=== PATIENT | female | born 1970 | race Two or more races ===

== ENCOUNTER 2018-11-05 13:06 | Inpatient (IN) | payer MEDICAID, OTHER ==
[~2018-11-05] VITALS: Ht 167.6 cm; Wt 69.6 kg
[2018-11-05] MEDS ORDERED: ZOLP5 PO (15:03)
[2018-11-05] MEDS ORDERED: LORA2TAB2 PO (15:03)
[2018-11-05 16:01] LABS: BASOPHILS % (AUTO) 0.5 % (0.0-2.0); HEMOGLOBIN 12.4 g/dL (12.0-16.0); LYMPHOCYTES % (AUTO) 26.5 % (22.0-44.0); MEAN CORPUSCULAR HEMOGLOBIN 31.7 pg (26.0-34.0); MEAN CORPUSCULAR HGB CONC 34.5 G/dL (31.0-37.0); MEAN CORPUSCULAR VOLUME 92 fL (80-100); MONOCYTES # (AUTO) 0.7 K/uL (0.1-1.0); MONOCYTES % (AUTO) 9.2 % (2.0-9.0); NEUTROPHILS # (AUTO) 4.4 K/uL (1.8-7.7); NEUTROPHILS % (AUTO) 59.8 % (40.0-70.0); PLATELET COUNT (AUTO) 244 K/uL (150-450); RED BLOOD CELL COUNT(AUTO) 3.91 MIL/uL (4.00-5.20)
[2018-11-05 16:11] LABS: APPEARANCE,URINE CLEAR (CLEAR); BILIRUBIN,URINE NEGATIVE (NEGATIVE); GLUCOSE, URINE (UA) NEGATIVE (NEGATIVE); KETONES,URINE NEGATIVE (NEGATIVE); LEUKOCYTE ESTERASE ,URINE MODERATE (NEGATIVE); NITRATE,URINE NEGATIVE (NEGATIVE); OCCULT BLOOD,URINE NEGATIVE (NEGATIVE); PROTEIN,URINE NEGATIVE (NEGATIVE); UROBILINOGEN,URINE 0.2 mg/dL (<=1.0)
[2018-11-05 16:12] LABS: AMPHET/METH SCREEN,URINE NEGATIVE (NEGATIVE); BARBITURATE SCREEN, URINE NEGATIVE (NEGATIVE); BENZODIAZEPINES SCREEN,URINE NEGATIVE (NEGATIVE); CANNABINOID SCREEN,URINE NEGATIVE (NEGATIVE); COCAINE SCREEN,URINE NEGATIVE (NEGATIVE); METHADONE SCREEN, URINE NEGATIVE (NEGATIVE); OPIATE SCREEN,URINE NEGATIVE (NEGATIVE)
[2018-11-05 16:12] LABS: ANION GAP 9 mmol/L (8-16); CARBON DIOXIDE 28 mmol/L (22-29); CHLORIDE 104 mmol/L (98-107); CREATININE 0.57 mg/dL (0.60-1.30); GLOMERULAR FILTR. RATE CALC > 60 mL/min (>60); GLUCOSE,RANDOM 88 mg/dL (70-110); POTASSIUM 3.8 mmol/L (3.5-5.1); SODIUM SERUM 141 mmol/L (136-145); UREA NITROGEN, BLOOD 12 mg/dL (7-18)
[2018-11-05 16:13] LABS: PHENCYCLIDINE SCREEN,URINE NEGATIVE (NEGATIVE)
[2018-11-05 16:20] LABS: RBC,URINE 0-2 /HPF (0-2)
[2018-11-05 16:21] LABS: BACTERIA,URINE Few /HPF (None Seen); SQUAMOUS EPITHELIAL CELL,UR Few /LPF (None Seen)
[2018-11-05 16:26] LABS: ALANINE AMINOTRANSFERASE 24 U/L (12-78); ALBUMIN 3.7 g/dL (3.4-5.0); ALKALINE PHOSPHATASE 60 U/L (46-116); ASPARTATE AMINOTRANSFERASE 19 U/L (15-37); BILIRUBIN,TOTAL 0.5 mg/dL (0.1-1.0); TOTAL PROTEIN, SERUM 6.9 g/dL (6.4-8.2)
[2018-11-05] MEDS ORDERED: HALOPERIDOL 5 MG TABLET PO ONE (20:15)
[2018-11-05] MEDS ORDERED: DiphenhydrAMINE HCL 25 MG CAPSULE PO ONE (20:15)
[2018-11-05] MEDS ORDERED: LORazepam 2 MG TABLET PO ONE (20:15)
[2018-11-05 21:23] LABS: CHOL/HDL RATIO 2.7 (3.9-5.7); CHOLESTEROL 156 mg/dL (131-200); FREE T4 (FREE THYROXINE) 1.08 ng/dL (0.76-1.46); HDL CHOLESTEROL 58 mg/dL (40-60); LDL CHOL (CALC.) 77 mg/dL (0-130); THYROID STIMULATING HORMONE 1.46 uIU/mL (0.36-3.74); TRIGLYCERIDES 107 mg/dL (15-150)
[2018-11-06 00:30] VITALS: BP 121/72
[2018-11-06] MEDS: ZOLPIDEM TARTRATE 10 MG TABLET PO PRN ×2 (01:18→21:04)
[2018-11-06] MEDS ORDERED: MAGNESIUM HYDROXIDE SUSPENSION 30 ML UDCUP PO PRN (06:45)
[2018-11-06] MEDS ORDERED: CloNIDine HCL 0.1 MG TABLET PO PRN (06:45)
[2018-11-06] MEDS ORDERED: DOCUSATE SODIUM 100 MG CAPSULE PO PRN (06:45)
[2018-11-06] MEDS ORDERED: GuaiFENesin/D-METHORPHAN [SUGAR-FREE] 200-20MG/10 ML SYRUP UDCUP PO PRN (06:45)
[2018-11-06] MEDS ORDERED: ALBUTEROL SULFATE HFA 90 MCG/PUFF 8 GM INHALER IH PRN (06:45)
[2018-11-06] MEDS ORDERED: ACETAMINOPHEN 325 MG TABLET PO PRN (06:45)
[2018-11-06] MEDS ORDERED: LOPERAMIDE HCL 2 MG CAPSULE PO PRN (06:45)
[2018-11-06] MEDS ORDERED: IBUPROFEN 400 MG TABLET PO PRN (06:45)
[2018-11-06] MEDS ORDERED: ONDANSETRON HCL 4 MG TABLET PO PRN (06:45)
[2018-11-06] MEDS ORDERED: NICOTINE 14 MG/24 HOUR PATCH TD PRN (06:45)
[2018-11-06] MEDS ORDERED: MAG HYDROX/AL HYDROX/SIMETH ES 30 ML SUSPENSION UDCUP PO PRN (06:45)
[2018-11-06] MEDS ORDERED: PETROLATUM,WHITE 71 GM JELLY TP PRN (06:45)
[2018-11-06] MEDS: HALOPERIDOL 5 MG TABLET PO PRN (08:42)
[2018-11-06] MEDS: LORazepam 2 MG TABLET PO PRN (08:42)
[2018-11-06 10:38] VITALS: BP 130/77
[2018-11-06] MEDS: ZIPRASIDONE HCL 80 MG CAPSULE PO SCH (21:05)
[2018-11-06 21:16] VITALS: BP 103/61
[2018-11-07] MEDS: ZIPRASIDONE HCL 40 MG CAPSULE PO SCH (08:25)
[2018-11-07] MEDS: CEPHALEXIN MONOHYDRATE 250 MG CAPSULE PO SCH ×2 (08:26→17:21)
[2018-11-07 08:52] VITALS: BP 113/64
[2018-11-07] MEDS: HALOPERIDOL 5 MG TABLET PO PRN (16:45)
[2018-11-07] MEDS: LORazepam 2 MG TABLET PO PRN (16:45)
[2018-11-07 17:00] VITALS: BP 111/74
[2018-11-07] MEDS: ZOLPIDEM TARTRATE 10 MG TABLET PO PRN (21:23)
[2018-11-07] MEDS: ZIPRASIDONE HCL 80 MG CAPSULE PO SCH (21:23)
[2018-11-08 06:39] LABS: BASOPHILS % (AUTO) 0.7 % (0.0-2.0); EOSINOPHILS % (AUTO) 5.6 % (1.0-6.0); HEMATOCRIT 34.5 % (36-46); HEMOGLOBIN 12.1 g/dL (12.0-16.0); LYMPHOCYTES # (AUTO) 2.2 K/uL (1.0-4.8); LYMPHOCYTES % (AUTO) 37.7 % (22.0-44.0); MEAN CORPUSCULAR HEMOGLOBIN 32.2 pg (26.0-34.0); MEAN CORPUSCULAR HGB CONC 35.1 G/dL (31.0-37.0); MEAN CORPUSCULAR VOLUME 92 fL (80-100); MONOCYTES # (AUTO) 0.7 K/uL (0.1-1.0); NEUTROPHILS # (AUTO) 2.6 K/uL (1.8-7.7); PLATELET COUNT (AUTO) 230 K/uL (150-450); RED BLOOD CELL COUNT(AUTO) 3.76 MIL/uL (4.00-5.20)
[2018-11-08 07:13] LABS: ALANINE AMINOTRANSFERASE 28 U/L (12-78); ALBUMIN 3.2 g/dL (3.4-5.0); ALKALINE PHOSPHATASE 54 U/L (46-116); ANION GAP 5 mmol/L (8-16); ASPARTATE AMINOTRANSFERASE 48 U/L (15-37); BILIRUBIN,TOTAL 0.8 mg/dL (0.1-1.0); CALCIUM, TOTAL 8.8 mg/dL (8.8-10.5); CARBON DIOXIDE 28 mmol/L (22-29); CHLORIDE 107 mmol/L (98-107); CHOL/HDL RATIO 2.7 (3.9-5.7); CHOLESTEROL 135 mg/dL (131-200); CREATININE 0.75 mg/dL (0.60-1.30); GLOMERULAR FILTR. RATE CALC > 60 mL/min (>60); GLUCOSE,RANDOM 89 mg/dL (70-110); HDL CHOLESTEROL 50 mg/dL (40-60); LDL CHOL (CALC.) 62 mg/dL (0-130); SODIUM SERUM 140 mmol/L (136-145); THYROID STIMULATING HORMONE 2.28 uIU/mL (0.36-3.74); TOTAL PROTEIN, SERUM 6.1 g/dL (6.4-8.2); TRIGLYCERIDES 114 mg/dL (15-150); UREA NITROGEN, BLOOD 15 mg/dL (7-18)
[2018-11-08] MEDS: ZIPRASIDONE HCL 80 MG CAPSULE PO SCH ×2 (07:50→21:11)
[2018-11-08] MEDS: CEPHALEXIN MONOHYDRATE 250 MG CAPSULE PO SCH ×2 (09:05→16:38)
[2018-11-08] MEDS: ZIPRASIDONE HCL 40 MG CAPSULE PO SCH (09:05)
[2018-11-08 10:17] VITALS: BP 121/65
[2018-11-08 17:06] VITALS: BP 109/92
[2018-11-08] MEDS: ZOLPIDEM TARTRATE 10 MG TABLET PO PRN (21:13)
[2018-11-09] MEDS: ZIPRASIDONE HCL 40 MG CAPSULE PO SCH (08:12)
[2018-11-09] MEDS: CEPHALEXIN MONOHYDRATE 250 MG CAPSULE PO SCH ×2 (11:30→17:07)
[2018-11-09 12:15] VITALS: BP 119/58
[2018-11-09 16:20] VITALS: BP 128/72
[2018-11-09] MEDS: ZOLPIDEM TARTRATE 10 MG TABLET PO PRN (21:13)
[2018-11-09] MEDS: ZIPRASIDONE HCL 80 MG CAPSULE PO SCH (21:13)
[2018-11-09] MEDS: HALOPERIDOL 5 MG TABLET PO PRN (21:13)
[2018-11-10 04:12] VITALS: BP 112/70
[2018-11-10] MEDS: ZIPRASIDONE HCL 40 MG CAPSULE PO SCH (07:02)
[2018-11-10] MEDS: CEPHALEXIN MONOHYDRATE 250 MG CAPSULE PO SCH (10:25)
[2018-11-10] MEDS ORDERED: ZIPR80CA2 PO (11:27)
[2018-11-10] MEDS ORDERED: ZIPR40CA2 PO (11:27)
[2018-11-10] MEDS ORDERED: CEPH250 PO (11:27)
== END 2018-11-10 12:50 | DRG 750 ==
LOC: EMS 13:08 → EDSEX 13:08 → 3EI 22:27
PROVIDERS: ADMIT Psychiatry & Neurology Psychiatry; ATTEND Psychiatry & Neurology Psychiatry
DX: F25.0 Schizoaffective disorder, bipolar type (principal); F17.200 Nicotine dependence, unspecified, uncomplicated; G47.00 Insomnia, unspecified; N39.0 Urinary tract infection, site not specified; S80.01XA Contusion of right knee, initial encounter; S80.02XA Contusion of left knee, initial encounter; J30.9 Allergic rhinitis, unspecified; R45.87 Impulsiveness; W19.XXXA Unspecified fall, initial encounter; Y93.89 Activity, other specified; Y92.89 Other specified places as the place of occurrence of the external cause
CPT/HCPCS: 83036; 84439; 84443; 87081; G0480

== ENCOUNTER 2018-12-18 15:00 | Emergency (ER) | payer MEDICAID, OTHER ==
[~2018-12-18] VITALS: Ht 162.6 cm; Wt 72.7 kg
[~2018-12-18 15:00] MED LIST: CEPH250 PO; ZIPR40CA2 PO; ZIPR80CA2 PO
[2018-12-18] MEDS ORDERED: DIVA-78 PO (15:36)
[2018-12-18] MEDS ORDERED: DIPH25 PO (15:36)
[2018-12-18] MEDS ORDERED: ZOLP5 PO (15:36)
[2018-12-18] MEDS ORDERED: HALO100V4 IM (15:36)
[2018-12-18] MEDS ORDERED: HALO5TAB2 PO (15:36)
[2018-12-18] MEDS ORDERED: LORA1TAB3 PO (15:36)
[2018-12-18 19:09] VITALS: BP 137/88
== END 2018-12-18 19:23 | disposition home or self-care (01) ==
LOC: EMS 15:00
DX: S01.01XA Laceration without foreign body of scalp, initial encounter (principal); F20.9 Schizophrenia, unspecified; F17.200 Nicotine dependence, unspecified, uncomplicated; Z88.2 Allergy status to sulfonamides; Z88.6 Allergy status to analgesic agent; W19.XXXA Unspecified fall, initial encounter; Y93.89 Activity, other specified; Y92.89 Other specified places as the place of occurrence of the external cause; Y99.8 Other external cause status
CPT/HCPCS: 12001